=== PATIENT | female | born 1950 | race Caucasian/White ===

== ENCOUNTER 2016-07-02 10:52 | Emergency (ER) | payer OTHER, MEDICARE ==
[~2016-07-02] VITALS: Ht 157.5 cm; Wt 71.4 kg
[~2016-07-02 10:52] MED LIST: ALLEGRA ALLERGY60 MG PO; CALCIUM 600 +1 EAC9 PO; DILAUDID2 MG PO; GLUCOSAMINE &1 EAC1 PO; LISINOPRIL-HCT1 EACH PO; PERCOCET 5/31 TABLET PO; PROBIOTIC1 EAC1 PO; TYLENOL EXTRA500 MG PO; VISTARIL25 MG PO; VITAMIN D10000 UNIT PO; ZETIA10 MG PO; [UNRECOGNIZED DRUG - OTHER] PO
[2016-07-02 11:36] LABS: EOSINOPHIL (%) 0.6 % (0-5); HEMATOCRIT 41.3 % (36.0-46.0); IMMATURE GRANULOCYTE (%) 0.3 % (0.0-0.7); INSTRUMENT ABS NEUTROPHIL CT 3.6 K/uL; LYMPHOCYTE COUNT 2.8 K/uL (1.0-2.8); MCH 31.3 PG (29.0-34.0); MCHC 33.4 G/DL (30.0-36.0); MCV 93.7 FL (83-99); MEAN PLAT.VOLUME 9.9 uM^3 (9.5-12.4); MONOCYTE (%) 6.6 % (3-12); MONOCYTE COUNT 0.5 K/uL (0-0.8); NEUTROPHIL (%) 51.6 % (45-76); NEUTROPHIL COUNT 3.6 K/uL (1.8-6.4); PLATELET COUNT 321 K/uL (156-360); RBC DIS.WIDTH-CV 13.2 % (11.8-14.6); RBC DIS.WIDTH-SD 45.7 % (39-53); RED BLOOD COUNT 4.41 M/uL (3.80-5.20)
[2016-07-02 11:43] LABS: CHLORIDE 102 mEq/L (99-109); POTASSIUM 3.4 mEq/L (3.7-5.4); SODIUM 138 mEq/L (136-147)
[2016-07-02 11:46] LABS: GLUCOSE 114 mg/dL (70-99)
[2016-07-02 11:47] LABS: ANION GAP 10 MEQ/L (2-14)
[2016-07-02 11:48] LABS: TOTAL BILIRUBIN 0.5 mg/dL (0.0-1.0)
[2016-07-02 11:49] LABS: ALKALINE PHOSPHATASE 69 IU/L (3-129); GFR ESTIMATE (CALCULATED) > 59 mL/min/
[2016-07-02 11:50] LABS: UREA NITROGEN (BUN) 13 mg/dL (9-23)
[2016-07-02 11:53] LABS: LIPASE 21 U/L (1.0-51.0)
[2016-07-02 12:59] LABS: ADD MIUA? NO; BILIRUBIN NEGATIVE; BLOOD NEGATIVE; COLOR COLORLESS ((YELLOW)); GLUCOSE (STRIP) NEGATIVE; KETONES NEGATIVE; LEUKOCYTES NEGATIVE; NITRITE NEGATIVE; PROTEIN (STRIP) NEGATIVE; SPECIFIC GRAVITY 1.008 (1.000-1.030); UCUL ADDED? NO; UROBILINOGEN 0.2 MG/DL (0.2-1.0)
[2016-07-02] MEDS ORDERED: GABAPENTIN100 MG PO (13:28)
[2016-07-02 14:26] VITALS: BP 174/103
== END 2016-07-02 14:30 | disposition home or self-care (01) ==
LOC: EME 10:52
PROVIDERS: Emergency Medicine
DX: R10.31 Right lower quadrant pain (principal); Z88.0 Allergy status to penicillin; I10 Essential (primary) hypertension
CPT/HCPCS: 74177; 80053; 81003; 83690; 85025; 99281; 99284; J7040

== ENCOUNTER 2016-07-11 10:00 | Emergency (ER) | payer OTHER, MEDICARE ==
[~2016-07-11] VITALS: Ht 152.4 cm; Wt 70.0 kg
[~2016-07-11 10:00] MED LIST changes: +GABAPENTIN100 MG PO
[2016-07-11 11:12] LABS: HEMATOCRIT 40.6 % (36.0-46.0); MCH 31.4 PG (29.0-34.0); MCHC 33.7 G/DL (30.0-36.0); MCV 93.1 FL (83-99); MEAN PLAT.VOLUME 9.5 uM^3 (9.5-12.4); PLATELET COUNT 316 K/uL (156-360); RBC DIS.WIDTH-CV 13.1 % (11.8-14.6); RBC DIS.WIDTH-SD 45.1 % (39-53); RED BLOOD COUNT 4.36 M/uL (3.80-5.20); WHITE BLOOD COUNT 6.5 K/uL (4.1-10.2)
[2016-07-11] MEDS ORDERED: VALACYCLOVIR500 MG PO (11:14)
[2016-07-11] MEDS ORDERED: TYLENOL WITH C1 EACH PO (11:15)
[2016-07-11 11:47] LABS: ALKALINE PHOSPHATASE 60 IU/L (3-129); ANION GAP 9 MEQ/L (2-14); CHLORIDE 100 MEQ/L (99-109); GFR ESTIMATE (CALCULATED) > 59 mL/min/; GLUCOSE 88 mg/dL (70-99); POTASSIUM 3.6 MEQ/L (3.7-5.4); SAMPLE HEMOLYSIS CHECK 0; SAMPLE ICTERIC CHECK 0; SAMPLE LIPEMIA CHECK 0; SODIUM 136 MEQ/L (136-147); TOTAL BILIRUBIN 0.5 MG/DL (0.0-1.0); UREA NITROGEN (BUN) 14 mg/dL (9-23)
[2016-07-11 13:14] LABS: ADD MIUA? NO; BILIRUBIN NEGATIVE; BLOOD NEGATIVE; COLOR YELLOW ((YELLOW)); GLUCOSE (STRIP) NEGATIVE; KETONES NEGATIVE; LEUKOCYTES NEGATIVE; NITRITE NEGATIVE; PROTEIN (STRIP) NEGATIVE; SPECIFIC GRAVITY 1.017 (1.000-1.030); UCUL ADDED? NO; UROBILINOGEN 0.2 MG/DL (0.2-1.0)
[2016-07-11 14:44] VITALS: BP 144/71
== END 2016-07-11 14:44 | disposition home or self-care (01) ==
LOC: EME 10:00
DX: K59.00 Constipation, unspecified (principal); R10.9 Unspecified abdominal pain; I10 Essential (primary) hypertension; M81.0 Age-related osteoporosis without current pathological fracture
CPT/HCPCS: 74020; 80053; 81003; 85027; 99281; 99284